=== PATIENT | male | born 1990 | race African-American/Black ===

== ENCOUNTER 2023-05-19 23:42 | Emergency (ER) | payer SELFPAY ==
[2023-05-20] MEDS ORDERED: METH-653 MT (07:37)
[2023-05-20] MEDS ORDERED: IBUP-2029 MT (07:37)
== END 2023-05-20 01:51 | disposition left against medical advice (07) ==
LOC: ER 23:58
DX: R42 Dizziness and giddiness (principal); Z53.21 Procedure and treatment not carried out due to patient leaving prior to being seen by health care provider
CPT/HCPCS: 99281

== ENCOUNTER 2023-05-20 02:11 | Emergency (ER) | payer SELFPAY ==
[~2023-05-20] VITALS: Ht 177.8 cm; Wt 105.0 kg
[2023-05-20 02:23] VITALS: O2SAT 98
[2023-05-20] MEDS ORDERED: KETOROLAC 15MG/ML VIAL IM ONE (02:45)
[2023-05-20] MEDS ORDERED: METH-653 MT (07:37)
[2023-05-20] MEDS ORDERED: IBUP-2029 MT (07:37)
[2023-05-20 08:25] VITALS: BP 150/85; PULSE 80; RESP 18; TEMP 98.2
== END 2023-05-20 08:29 | disposition home or self-care (01) ==
LOC: ER 02:33
DX: S39.012A Strain of muscle, fascia and tendon of lower back, initial encounter (principal); X58.XXXA Exposure to other specified factors, initial encounter; Y93.89 Activity, other specified; Y92.89 Other specified places as the place of occurrence of the external cause; Y99.8 Other external cause status
CPT/HCPCS: 72100; 96372; 99283; J1885; Z7610